=== PATIENT | female | born 1985 ===

== ENCOUNTER 2018-12-10 08:41 | Emergency (ER) | payer SELFPAY ==
[~2018-12-10] VITALS: Ht 167.6 cm; Wt 122.9 kg
[2018-12-10 08:45] VITALS: Ht 167.6 cm; Wt 122.9 kg
[2018-12-10] MEDS ORDERED: CETI10CA PO (11:45)
[2018-12-10 11:58] VITALS: BP 129/75; PULSE 86; RESP 19
--- NOTE | 2018-12-10 13:46 | ERD ---
ER Documentation Chief Complaint Chief Complaint HEADACHE FROM FRONTAL SINUSES, LEFT EAR FEELS CLOGGED HPI 33-year-old female patient with a past medical history of anxiety presents the ED complaining of a headache, dizziness, nasal congestion, rhinorrhea, feeling like she has numbness and tingling of her face as well as her ear plugged. Reports that sometimes her bilateral hands are numb and tingling. Denies any chest pain, shortness of breath, nausea, vomiting, diarrhea, neck stiffness. Patient denies any head injuries. ROS All systems reviewed and are negative except as per history of present illness. Medications Home Meds Active Scripts Cetirizine Hcl* (Zyrtec*) 10 Mg Capsule, 10 MG PO DAILY, #10 TAB.CHEW Prov:SANDY LAO PA-C 12/10/18 PMhx/Soc Medical and Surgical Hx: pt denies Medical Hx History of Surgery: Yes () Hx Alcohol Use: No Hx Substance Use: No Hx Tobacco Use: Yes Smoking Status: Current every day smoker FmHx Family History: No diabetes, No coronary disease Physical Exam Vitals Vital Signs Date Temp Pulse Resp B/P (MAP) Pulse Ox O2 O2 Flow FiO2 Time Delivery Rate 12/10/18 98.8 86 19 129/75 99 Room Air 11:58 (93) 12/10/18 98.9 79 20 139/80 98 08:45 (99) Physical Exam Const: Xjc-ncs-haugcplox, well-nourished. In no acute distress. Head: Atraumatic, normocephalic Eyes: Normal Conjunctiva without injection. No purulent discharge. PERRLA. EOMI ENT: Normal external ear. Ear canal without erythema. Tympanic membrane pearly anderson without effusion or bulging. Nasal canal clear with normal turbinates. Yogesh st oropharynx without tonsillar exudates. Non-erythematous pharynx. Uvula midline. No drooling. No trismus. Neck: No cervical midline tenderness. Full range of motion. No meningismus. No cervical lymphadenopathy. No JVD. Resp: Clear to auscultation bilaterally. No wheezing, rhonchi, rales, or crackles. No accessory muscle use. No retractions. Cardio: Regular rate and rhythm. No murmurs, rubs or gallops. Abd: Soft, non tender, non distended. Normal bowel sounds. No palpable masses. No rebound tenderness. No guarding. Negative McBurney's Point. Negative Mcdonnell's Sign. Skin: Normal skin turgor. No petechiae or rashes Back: No midline tenderness. No CVA tenderness. Ext: No cyanosis, or edema. Distal pulses intact bilaterally. Neur: Awake and alert. Normal gait. Normal coordination. Cranial Nerves II- VII intact. Normal finger to nose. Muscle strength 5/5. Sensation intact. Psych: Normal Mood and Affect Results 24 hrs Laboratory Tests Test 12/10/18 10:55 12/10/18 10:58 Bedside Urine pH (LAB) 5.5 Bedside Urine Protein (LAB) Negative Bedside Urine Glucose (UA) Negative Bedside Urine Ketones (LAB) Negative Bedside Urine Blood Negative Bedside Urine Nitrite (LAB) Negative Bedside Urine Leukocyte Esterase (L Negative POC Beta HCG, Qualitative NEGATIVE Bedside Glucose 80 mg/dL Procedures/MDM 33-year-old female patient with no significant past medical history presents ED complaining of numbness and tingling of her head, rhinorrhea, nasal congestion, headache as well as dizziness. Patient is afebrile and nontoxic-appearing. Accu-Chek, EKG, urine dip, urine was ordered to further evaluate patient. Urine negative. EKG reviewed and interpreted by Dr. Robert Rate/Rhythm: [60 bpm, Normal Sinus Rhythm] No ectopy, no ST elevations, normal axis. QRS, ST, T-waves: [No changes consistent w/ acute ischemia] Impression: [No evidence of ischemia or arrhythmia] AccuCheck is 80. Low suspicion for acute myocardial infarction, pneumothorax, pneumonia, cardiac tamponade, Dmvmj-Xvwzhidaj-Zetfy Syndrome, Brugada Syndrome, pulmonary embolism, AAA, aortic dissection, thoracic aortic dissection, endocarditis, myocarditis, pericarditis, cocaine-related ischemia, Boerhaave's syndrome, cardiac dysrhythmias,meningitis, intracranial bleed, seizure, stroke, TIA or other emergent conditions. Diagnosis: Tingling, Rhinorrhea Discharge medications: Zyrtec Follow up with primary care physician in 1-2 days. Instructed patient to return to the ED sooner for any worsening symptoms. Patient's questions were answered. Patient is hemodynamically stable. Patient understood and agreed with discharge plan. Patient discharged stable. Disclaimer: Inadvertent spelling and grammatical errors are likely due to EHR/dictation software use and do not reflect on the overall quality of patient care. Also, please note that the electronic time recorded on this note does not necessarily reflect the actual time of the patient encounter. Departure Diagnosis: Primary Impression: Tingling Additional Impression: Rhinorrhea Condition: Stable Patient Instructions: Allergic Rhinitis, Paraesthesias [facility] Usted se felix hecho un examen mdico de control que le indica que no est en neno condicin que requiera tratamiento urgente en el Departamento de Emergencia. Un estudio ms profundo y el tratamiento de sanchez condicin pueden esperar sin ningn riesgo hasta que usted sea atendida/o en el consultorio de sanchez mdico o neno clnica. Es responsabilidad suya arreglar neno gilberto para el seguimiento del marisol. MANEJO DE CONDICIONES NO URGENTES EN EL FUTURO 1) Si usted tiene un mdico de atencin primaria: Usted debera llamar a sanchez mdico de atencin primaria antes de venir al departamento de emergencia. Despus de las horas de consultorio, sanchez doctor o sanchez asociado/a est disponible por telfono. El mdico o enfermero de chang en el servicio telefnico puede asesorarle por sixto medio para atender el problema, o marisol contrario se puede programar neno gilberto. 2) Si usted no tiene un mdico de atencin primaria: Llame al mdico o clnica de referencia que aparece abajo lisa las horas de consultorio para hacer neno gilberto para que le vean. CLINICAS: [facility] [phone] [facility] [phone] [facility] [phone] [facility] 372 [phone] [facility] [phone] [facility] [phone] [facility] () Jocelyne se felix hecho un examen mdico de control que le indica que no est en neno condicin que requiera tratamiento urgente en el Departamento de Emergencia. Un estudio ms profundo y el tratamiento de sanchez condicin pueden esperar sin ningn riesgo hasta que usted sea atendida/o en el consultorio de sanchez mdico o neno clnica. Es responsabilidad suya arreglar neno gilberto para el seguimiento del marisol. MANEJO DE CONDICIONES NO URGENTES EN EL FUTURO 1) Si usted tiene un mdico de atencin primaria: Usted debera llamar a sanchez mdico de atencin primaria antes de venir al departamento de emergencia. Despus de las horas de consultorio, sanchez doctor o sanchez asociado/a est disponible por telfono. El mdico o enfermero de chang en el servicio telefnico puede asesorarle por sixto medio para atender el problema, o marisol contrario se puede programar neno gilberto. 2) Si usted no tiene un mdico de atencin primaria: Llame al mdico o condado institucions de referencia que aparece abajo lisa las horas de consultorio para hacer neno gilberto para que le vean. SI USTED NO PUEDE PAGAR PARA ELSI UN MEDICO puede ir a: [facility] [address] [place] [address] [facility] [address] [place] [address] [facility] [address] [place] [address] [facility] [address] [place] [address] Additional Instructions: Llame al doctor MAANA y delisa neno GILBERTO PARA DENTRO DE 2-3 NAVARRO.Dgale a la secretaria que nosotros le instruimos hacer esta gilberto.Avise o llame si sanchez condicin se empeora antes de la gilberto. Regresa aqui si peor o no mejor. SANDY LAO PA-C December 10, 2018 13:46
--- NOTE | 2018-12-12 14:46 | RADRPT ---
Vent Rate: 60 bpm RR Interval: 0 msec NE Interval: 142 msec QRS Duration: 86 msec QT Interval: 428 msec QTC Interval: 428 msec P-R-T [place]: 74 - 80 - 61 degrees Normal sinus rhythm Normal ECG Electronically Signed By: [facility]
== END 2018-12-10 12:00 | disposition home or self-care (01) ==
LOC: FTE 08:41
DX: R20.2 Paresthesia of skin (principal); F17.210 Nicotine dependence, cigarettes, uncomplicated; J34.89 Other specified disorders of nose and nasal sinuses
CPT/HCPCS: 81003; 81025; 82962; 93005